=== PATIENT | male | born 1980 ===

== ENCOUNTER 2021-04-25 07:50 | Day surgery (SDC) | payer OTHER ==
[2021-04-25] MEDS ORDERED: Ringers Lactate 1,000 ML IV ONE ×2 (08:26→12:54)
[2021-04-25] MEDS ORDERED: CEFAZOLIN/SWI 1gm 1 GM/10 ML SYR ONE (08:27)
[2021-04-25] MEDS ORDERED: LIDOCAINE 2% MPF 5 ML VIAL ONE (08:44)
[2021-04-25] MEDS ORDERED: propofoL 200 MG/20 ML VIAL IV ONE (08:44)
[2021-04-25] MEDS ORDERED: FENTANYL CITR 250 MCG/5 ML ONE (08:44)
[2021-04-25] MEDS ORDERED: ROCURONIUM 50 MG/5 ML VIAL IV ONE (08:51)
[2021-04-25] MEDS ORDERED: MIDAZOLAM HCL 2 MG/2 ML INJ ONE (08:51)
[2021-04-25] MEDS ORDERED: ONDANSETRON 4 MG/2 ML VIAL ONE ×2 (08:51→11:21)
[2021-04-25] MEDS ORDERED: BUPIVACAINE 0.25% PF 10 ML VIAL ONE (09:05)
[2021-04-25] MEDS ORDERED: GLYCOPYRROLATE 0.2 MG/ML SYR ONE (10:49)
[2021-04-25] MEDS ORDERED: NEOSTIGMINE 1 MG/ML -5 ML ONE (10:49)
--- NOTE | 2021-04-25 10:49 | P.OP ---
Preoperative diagnosis: RIGHT Inguinal Hernia Postoperative diagnosis: RIGHT Inguinal Hernia Primary procedure: Open RIGHT inguinal hernia repair with plug and patch Anesthesia: GETA + Local Estimated blood loss: <10cc Specimen: hernia sack, cord lipoma Findings: indirect inguinal hernia, redicuble Complications: None Implants: Medium Bard Perfix plug and patch system Transferred to: Recovery Room Condition: Good
[2021-04-25] MEDS ORDERED: KETOROLAC 30 MG/ML INJ ONE (10:50)
[2021-04-25] MEDS: HYDROMORPHONE HCL 1 MG/ML INJ ONE ×2 (11:00→11:05)
[2021-04-25 11:12] VITALS: TEMP 97.5
[2021-04-25 11:47] VITALS: O2SAT 98
[2021-04-25] MEDS ORDERED: HYDROCODONE/APAP 10/325 TAB ONE (12:00)
--- NOTE | 2021-04-25 12:47 | OP ---
Date of Procedure: 04/25/2021 Surgeon: Nick Lakhani MD, Preoperative Diagnosis: Right inguinal hernia. Postoperative Diagnosis: Right inguinal hernia. Procedure Performed: Open right inguinal hernia repair with plug and patch system. Anesthesia: General endotracheal plus local with 0.25% Marcaine. Estimated Blood Loss: Less than 10 mL. Specimen: Hernia sac and cord lipoma. Findings: 1.Indirect inguinal hernia, which was reducible. 2.Near obliteration of the external oblique aponeurosis. Complications: None. Implants: Medium Bard PerFix plug and patch hernia repair system. Disposition: The patient was transferred to recovery room in good condition. Procedure In Detail: After informed consent was obtained, the patient was brought to the operating r oom, prepped and draped in the usual sterile fashion after adequate anesthesia was achieved. A right inguinal incision was performed down to subcutaneous tissues using a 15 blade. Electrocautery was u sed to dissect down through [place] fat and Paul fascia to expose the external oblique aponeurosis. This was found to be quite thin and alveolar, essentially translucent. I opened it sharply. The il ioinguinal nerve was identified and protected throughout the procedure and was moved to the medial po sition. I then dissected circumferentially around the spermatic cord structures and encircled the sp ermatic cord structures with a [place] drain. At this point, I removed the remaining fibrous attachm ents from the spermatic cord structures to mobilize this. I then dissected down proximally toward th e deep inguinal ring appreciating a large cord lipoma which was dissected free, tied off with a 2-0 n ylon suture and ligated at this point, sent off for pathologic examination. I then noted the hernia sac to be on the medial aspect with significant adipose tissue. I then opened the hernia sac at this point on the medial aspect consistent with an indirect inguinal hernia and after mobilizing the prep eritoneal fat, I reduced it to the normal anatomic position and ligated the sac circumferentially martir und and sent off for pathologic examination. At this point, I sized a medium Bard PerFix plug and pa tch hernia repair system and getting the plug first oriented in a parachute fashion and placed in the preperitoneal space and secured it circumferentially around the shelving edge at this point. I then brought the patch system sized appropriately and trimmed the mesh appropriately to pass onto the spe rmatic cord structures. I then secured to the pubic tubercle both on the medial aspect as well as on the residual shelving edge of the internal oblique aponeurosis, which was found to be quite thin and frail as well as the lateral shelving edge, which was easier to see and more fibrous on the undersur face of the inguinal ligament. At this point, the deep inguinal ring was reconstituted with the same said 2-0 PDS suture, which was used for the entire operation with respect to securing the mesh as de scribed. At this point, I irrigated the area copiously and dried it. Following this, I ultimately c losed the residual external oblique aponeurosis with a running 3-0 Vicryl suture. It was still found to be quite thin and frail and alveolar. I then irrigated the area once again and closed the deep d ermal plane with interrupted 3-0 Vicryl sutures and the skin was closed with 4-0 Monocryl in a runnin g fashion. Dermabond placed over top. The patient tolerated the procedure well without evidence of complication and transferred to PACU in good condition. All counts were correct at the end of the ca se. TK/MODL Voice ID: [id number] Report ID: [id number]
[2021-04-25 13:25] VITALS: BP 138/79
[2021-04-25] MEDS ORDERED: PROMETHAZINE INJ 25 MG/ML AMP ONE (14:21)
== END 2021-04-25 14:30 | disposition home or self-care (01) ==
LOC: PRE 07:50
PROVIDERS: ATTEND Surgery
PROC: 0YU50JZ Supplement Right Inguinal Region with Synthetic Substitute, Open Approach (ICD-10-PCS; principal; 2021-04-25 08:30)
DX: K40.90 Unilateral inguinal hernia, without obstruction or gangrene, not specified as recurrent (principal); Z20.822 Contact with and (suspected) exposure to COVID-19
CPT/HCPCS: 88302; 49505; U0003; J2704; J2550; J2250; J3010; J1170; J2710; J0690; J7120 ×2; J2405 ×2

== ENCOUNTER 2022-09-18 23:48 | Observation (INO) | payer OTHER, SELFPAY ==
[2022-09-19] MEDS ORDERED: NITROGLYCERIN 0.4 MG/TAB SL ONE (00:11)
[2022-09-19 00:39] LABS: Absolute Lymphocytes (CBC) 2.9 K/uL (0.7-4.9); Hematocrit 43.8 % (39.6-49.0); Lymphocytes % 32.1 % (15.3-44.8); MCV 88.6 fL (80-100); MPV 9.6 fL (7.6-11.3); RBC Red Blood Cell Count 4.94 M/uL (4.33-5.43)
[2022-09-19] MEDS ORDERED: FENTANYL CITR 100 MCG/2 ML ONE (00:40)
[2022-09-19] MEDS ORDERED: NA CHLORIDE 0.9% 1,000 ML ONE (00:41)
[2022-09-19 00:48] LABS: Albumin 4.1 g/dL (3.4-5.0); Bilirubin Total 0.7 mg/dL (0.2-1.0); Potassium 3.7 mmol/L (3.5-5.1); Protein, Total 7.9 g/dL (6.4-8.2); Troponin High Sensitivity 4.2 pg/mL (<58.9)
[2022-09-19] MEDS ORDERED: SIMETHICONE 80 MG TAB ONE (02:04)
--- NOTE | 2022-09-19 02:05 | ER ---
Nurse's Notes [facility] Name: Kandace Cormier Age: 42 yrs Sex: Male : 1980 Arrival Date: 09/18/2022 Time: 23:49 Bed 5 Private MD: Diagnosis: Chest pain, unspecified Presentation: 09/18 23:58 Chief complaint: Patient states: I started having pain in the middle of my chest about kd3 10 to 15 minutes ago. It does not go anywhere. It just stays here. I have no history of heart issues. Coronavirus screen: Vaccine status: Patient reports receiving the 2nd dose of the covid vaccine. Ebola Screen: No symptoms or risks identified at this time. Initial Sepsis Screen: Does the patient meet any 2 criteria? No. Patient's initial sepsis screen is negative. Does the patient have a suspected source of infection? No. Patient's initial sepsis screen is negative. Risk Assessment: Do you want to hurt yourself or someone else? Patient reports no desire to harm self or others. Onset of symptoms was September 18, 2022. 23:58 Method Of Arrival: Ambulatory kd3 23:58 Acuity: MICHAELA 3 kd3 Triage Assessment: 23:59 General: Appears uncomfortable, Behavior is cooperative, anxious. Pain: Complains of kd3 pain in mid-sternal area. Neuro: Level of Consciousness is awake, alert, obeys commands, Oriented to person, place, time, situation. Cardiovascular: Capillary refill < 3 seconds in bilateral fingers. Historical: - Allergies: 23:59 No Known Allergies; kd3 - Home Meds: 23:59 None [Active]; kd3 - PMHx: 23:59 None; kd3 - Immunization history:: Adult Immunizations up to date. - Social history:: Smoking status: Patient denies any tobacco usage or history of. - Family history:: not pertinent. Screenin/02 00:15 [facility] ED Fall Risk Assessment (Adult) History of falling in the last 3 months, lg3 including since admission No falls in past 3 months (0 pts). Abuse screen: Denies threats or abuse. Denies injuries from another. Nutritional screening: No deficits noted. Tuberculosis screening: No symptoms or risk factors identified. Assessment: 00:15 General: Appears in no apparent distress. uncomfortable, Behavior is cooperative, lg3 anxious, restless. Pain: Complains of pain in chest Pain does not radiate. Pain currently is 10 out of 10 on a pain scale. Pain began suddenly. Neuro: No deficits noted. [place] Agitation-Sedation Scale (RASS): 0 - Alert and Calm Level of Consciousness is awake, alert, obeys commands, Oriented to person, place, time, situation. Cardiovascular: Reports chest pain, Denies shortness of breath, Capillary refill < 3 seconds Clubbing of nail beds is absent JVD is absent Patient's skin is warm and dry. Rhythm is sinus rhythm. Respiratory: No deficits noted. Airway is patent Trachea midline Respiratory effort is even, unlabored, Respiratory pattern is regular, symmetrical. GI: No deficits noted. No signs and/or symptoms were reported involving the gastrointestinal system. Abdomen is flat, non-distended. : No deficits noted. No signs and/or symptoms were reported regarding the genitourinary system. EENT: No deficits noted. No signs and/or symptoms were reported regarding the EENT system. Derm: No deficits noted. No signs and/or symptoms reported regarding the dermatologic system. Skin is intact, is healthy with good turgor, Skin is dry, Skin is normal. Musculoskeletal: No deficits noted. No signs and/or symptoms reported regarding the musculoskeletal system. Circulation, motion, and sensation intact. Range of motion: intact in all extremities. 02:19 Reassessment: Patient appears in no apparent distress at this time. No changes from lg3 previously documented assessment. Patient and/or family updated on plan of care and expected duration. Pain level reassessed. Patient is alert, oriented x 3, equal unlabored respirations, skin warm/dry/pink. Patient states feeling better. Patient states symptoms have improved. 03:10 General: attempted to call report. nurse out on lunch and will call back.. lg3 Vital Signs: 09/18 23:58 BP 155 / 102; Pulse 88; Resp 22; Temp 98.2(TE); Pulse Ox 100% on R/A; Weight 77.11 kg; kd3 09/19 00:27 BP 81 / 53; kl 00:55 BP 115 / 73; Pulse 66; Resp 20; Pulse Ox 97% on R/A; lg3 01:39 BP 121 / 77; Pulse 71; Resp 19; Pulse Ox 99% on R/A; lg3 ED Course: 09/18 23:49 Patient arrived in ED. ja2 23:53 Clay Bradley MD is Attending Physician. rt 23:59 Triage completed. kd3 23:59 Arm band placed on right wrist. kd3 02 00:10 Nakia Schulte, RN is Primary Nurse. eh3 00:15 Patient has correct armband on for positive identification. Placed in gown. Bed in low lg3 position. Call light in reach. Side rails up X 1. Client placed on continuous cardiac and pulse oximetry monitoring. NIBP monitoring applied. ekg monitor tech on. Door closed. Noise minimized. Warm blanket given. Family accompanied patient. 00:15 No provider procedures requiring assistance completed. Inserted saline lock: 20 gauge lg3 in right antecubital area, using aseptic technique. Blood collected. Patient maintains SpO2 saturation greater than 95% on room air. 01:29 Angio Aorta For Dissection In Process Unspecified. EDMS 02:04 Clarence Burkett MD is Hospitalizing Provider. rt 02:11 SARS RAPID Sent. lg3 03:47 Patient admitted, IV remains in place. intact, No redness/swelling at site. lg3 Administered Medications: 00:10 Drug: Nitroglycerin 0.4 mg {Note: BP 150/104.} Route: Sublingual; kl 00:16 Drug: Nitroglycerin 0.4 mg {Note: bp 112/78 no change in pain.} Route: Sublingual; kl 00:42 Drug: NS 0.9% 1000 ml Route: IV; Rate: 1 bolus; Site: right antecubital; kl 01:50 Follow up: Response: No adverse reaction; IV Status: Completed infusion; IV Intake: ll3 1000ml 00:42 Drug: fentaNYL (PF) 50 mcg Route: IVP; Site: right antecubital; kl 02:20 Follow up: Response: No adverse reaction; Pain is decreased; RASS: Alert and Calm (0) lg3 02:01 Drug: Simethicone 120 mg Route: PO; ll3 02:19 Follow up: Response: No adverse reaction lg3 02:11 Drug: Aspirin 325 mg Route: PO; lg3 02:19 Follow up: Response: No adverse reaction lg3 Medication: 00:15 VIS not applicable for this client. lg3 Intake: 01:50 IV: 1000ml; Total: 1000ml. ll3 Outcome: 02:05 Decision to Hospitalize by Provider. rt 03:46 Admitted to Med/surg accompanied by nurse, via wheelchair, room 203, Report called to jim Epperson 03:46 Condition: stable 03:46 Instructed on the need for admit, Demonstrated understanding of instructions. 03:47 Patient left the ED. lg3 Signatures: Dispatcher [employer] EDDiana Liu, RN RN Darby Ramirez RN RN martin3 My Marshall Lynsea RN RN ll3 Willa Hernandez RN RN kd3 Nakia Schulte, RN RN eh3 Clay Bradley MD MD rt
--- NOTE | 2022-09-19 02:06 | EDPHYS ---
Physician Documentation [facility] Name: Kandace Cormier Age: 42 yrs Sex: Male : 1980 Arrival Date: 09/18/2022 Time: 23:49 Bed 5 Private MD: ED Physician Clay Bradley HPI: 09/19 00:28 This 42 yrs old Unknown Male presents to ER via Ambulatory with complaints of Chest rt Pain. 00:28 The patient or guardian reports chest pain that is located primarily in the substernal rt area. Onset: just prior to arrival. The pain does not radiate. Associated signs and symptoms: Pertinent positives: shortness of breath, Pertinent negatives: cough. The chest pain is described as a pressure. Duration: The patient or guardian reports a single episode, that is still ongoing. Modifying factors: The symptoms are alleviated by nothing. the symptoms are aggravated by nothing. Severity of pain: At its worst the pain was severe. The patient has not experienced similar symptoms in the past. Historical: - Allergies: 09/18 23:59 No Known Allergies; kd3 - Home Meds: 23:59 None [Active]; kd3 - PMHx: 23:59 None; kd3 - Immunization history:: Adult Immunizations up to date. - Social history:: Smoking status: Patient denies any tobacco usage or history of. - Family history:: not pertinent. ROS: 09/19 00:28 Constitutional: Negative for fever, chills, and weight loss, Neck: Negative for injury, rt pain, and swelling, Abdomen/GI: Negative for abdominal pain, nausea, vomiting, diarrhea, and constipation, MS/Extremity: Negative for injury and deformity, Skin: Negative for injury, rash, and discoloration, Neuro: Negative for headache, weakness, numbness, tingling, and seizure, Psych: Negative for depression, anxiety, suicide ideation, homicidal ideation, and hallucinations. Cardiovascular: Positive for chest pain, Negative for edema. Respiratory: Positive for shortness of breath, Negative for cough. Exam: 00:28 Constitutional: This is a well developed, well nourished patient who is awake, alert, rt and in no acute distress. Head/Face: Normocephalic, atraumatic. Eyes: Pupils equal round and reactive to light, extra-ocular motions intact. Lids and lashes normal. Conjunctiva and sclera are non-icteric and not injected. Cornea within normal limits. Periorbital areas with no swelling, redness, or edema. Neck: Trachea midline, no thyromegaly or masses palpated, and no cervical lymphadenopathy. Supple, full range of motion without nuchal rigidity, or vertebral point tenderness. No Meningismus. Chest/axilla: Normal chest wall appearance and motion. Nontender with no deformity. No lesions are appreciated. Cardiovascular: Regular rate and rhythm with a normal S1 and S2. No gallops, murmurs, or rubs. Normal PMI, no JVD. No pulse deficits. Respiratory: Lungs have equal breath sounds bilaterally, clear to auscultation and percussion. No rales, rhonchi or wheezes noted. No increased work of breathing, no retractions or nasal flaring. Abdomen/GI: Soft, non-tender, with normal bowel sounds. No distension or tympany. No guarding or rebound. No evidence of tenderness throughout. Skin: Warm, dry with normal turgor. Normal color with no rashes, no lesions, and no evidence of cellulitis. MS/ Extremity: Pulses equal, no cyanosis. Neurovascular intact. Full, normal range of motion. Neuro: Awake and alert, GCS 15, oriented to person, place, time, and situation. Cranial nerves II-XII grossly intact. Motor strength 5/5 in all extremities. Sensory grossly intact. Cerebellar exam normal. Normal gait. Psych: Awake, alert, with orientation to person, place and time. Behavior, mood, and affect are within normal limits. 00:28 ECG was reviewed by the Attending Physician. Vital Signs: 09/18 23:58 BP 155 / 102; Pulse 88; Resp 22; Temp 98.2(TE); Pulse Ox 100% on R/A; Weight 77.11 kg; kd3 09/19 00:27 BP 81 / 53; kl 00:55 BP 115 / 73; Pulse 66; Resp 20; Pulse Ox 97% on R/A; lg3 01:39 BP 121 / 77; Pulse 71; Resp 19; Pulse Ox 99% on R/A; lg3 MDM: 00:00 Patient medically screened. rt 02:06 Differential diagnosis: acute myocardial infarction, pneumonia, pneumothorax, pulmonary rt embolus, thoracic aortic disection. HEART Score: History: Highly Suspicious (2), ECG: Normal (0), Age: < or = 45 years (0), Risk Factors: 1 or 2 risk factors (1), Troponin: < or = 1 x Normal Limit (0), Total Score = 3. Data reviewed: vital signs, nurses notes, lab test result(s), EKG, radiologic studies. Consideration of Admission/Observation Patient was admitted/placed on observation. Management of patient was discussed with the following: Hospitalist: Agrees to admit. I considered the following discharge prescriptions or medication management in the emergency department Medications were administered in the Emergency Department. See MAR. Independent interpretation of the following test(s) in the Emergency Department CT Scan: My interpretation is No dissection, free air under the diaphragm. Test considered but Not performed: X-ray: CT to be performed, x-ray redundant. Historians other than the Patient: Spouse/Significant Other: Confirmed history with spouse. Response to treatment: the patient's symptoms have markedly improved after treatment. 09/19 00:03 Order name: CBC with Diff; Complete Time: 01:25 rt 09/19 00:03 Order name: CMP; Complete Time: 01:25 rt 09/19 00:03 Order name: Lipase; Complete Time: 01:25 rt 09/19 00:03 Order name: Troponin High Sensitivity; Complete Time: 01:25 rt 09/19 00:24 Order name: Troponin High Sensitivity lg3 02 02:04 Order name: SARS RAPID la1 09/19 01:08 Order name: Angio Aorta For Dissection EDMS EC:28 Rate is 69 beats/min. Rhythm is regular, Normal Sinus Rhythm with No ectopy. QRS Alpha rt is Normal. AL interval is normal. QRS interval is normal. QT interval is normal. No Q waves. T waves are Normal. No ST changes noted. Interpreted by me. Administered Medications: 00:10 Drug: Nitroglycerin 0.4 mg {Note: BP 150/104.} Route: Sublingual; kl 00:16 Drug: Nitroglycerin 0.4 mg {Note: bp 112/78 no change in pain.} Route: Sublingual; kl 00:42 Drug: NS 0.9% 1000 ml Route: IV; Rate: 1 bolus; Site: right antecubital; kl 01:50 Follow up: Response: No adverse reaction; IV Status: Completed infusion; IV Intake: ll3 1000ml 00:42 Drug: fentaNYL (PF) 50 mcg Route: IVP; Site: right antecubital; 02:20 Follow up: Response: No adverse reaction; Pain is decreased; RASS: Alert and Calm (0) lg3 02:01 Drug: Simethicone 120 mg Route: PO; ll3 02:19 Follow up: Response: No adverse reaction lg3 02:11 Drug: Aspirin 325 mg Route: PO; lg3 02:19 Follow up: Response: No adverse reaction lg3 Disposition Summary: 09/19/22 02:05 Hospitalization Ordered Hospitalization Status: Observation rt Provider: Clarence Burkett rt Location: Telemetry/MedSurg (observation) rt Condition: Stable rt Problem: new rt Symptoms: have improved rt Bed/Room Type: Standard rt Room Assignment: 203(09/19/22 02:58) eb1 Diagnosis - Chest pain, unspecified rt Forms: - Medication Reconciliation Form rt - SBAR form rt Signatures: Dispatcher [employer] EDDiana Liu, RN RN Chayito Mcclendon RN RN eb1 Darby Phillips, RN RN lg3 Robel Obrien, RN RN ll3 Willa Hernandez, RN RN qamar3 Clay Bradley MD MD rt Corrections: (The following items were deleted from the chart) 00:25 00:24 EKG - Nurse/Tech ordered. lg3 lg3 01:08 00:04 Dissection W/ Wo Con+CT.RAD.BRZ ordered. EDMS EDMS 02:58 02:05 rt eb1
[2022-09-19] MEDS ORDERED: ASPIRIN 325 MG TAB ONE (02:11)
--- NOTE | 2022-09-19 02:35 | P.HP ---
Certification for Inpatient Patient admitted to: Observation With expected LOS: <2 Midnights Patient will require the following post-hospital care: None Practitioner: I am a practitioner with admitting privileges, knowledge of patient current condition, hospital course, and medical plan of care. Services: Services provided to patient in accordance with Admission requirements found in Title 42 Section 412.3 of the Code of Federal Regulations Patient History Date of Service: 09/19/22 Reason for admission: Chest pain History of Present Illness: 42-year-old male with no significant past medical history presents to the emergency department for chest pain. He reports that his pain began while watching TV at home, pain is described as pressure-like left anterior chest wall nonradiating made worse with deep breaths. He reports he is also fasting at this time at the time he was having abdominal distention and belching. Patient was evaluated in the emergency department initial hesitance to be troponin was 4.2 CT dissection protocol was performed which was negative for acute aortic findings or pulmonary embolism. EKG without STEMI criteria. ED provider wishes to manage observation for ACS rule out. Allergies No Known Allergies Allergy (Verified 04/18/21 11:50) Home Medications: NK [No Home Meds] 04/18/21 - Past Medical/Surgical History -: None -: Hernia Repair Psychosocial/ Personal History: Pt works at a gas [employer], lives at home with family. - Family History Family History: Reviewed- Non-Contributory - Social History Smoking Status: Never smoker Alcohol use: No CD- Drugs: No Caffeine use: No Place of Residence: Home Review of Systems 10-point ROS is otherwise unremarkable Cardiovascular: Chest Pain Physical Examination - Physical Exam General: Alert, In no apparent distress, Oriented x3 HEENT: Atraumatic, PERRLA, Mucous membr. moist/pink, EOMI, Sclerae nonicteric Neck: Supple, 2+ carotid pulse no bruit, No LAD, Without JVD or thyroid abnormality Respiratory: Clear to auscultation bilaterally, Normal air movement Cardiovascular: Regular rate/rhythm, Normal S1 S2 Gastrointestinal: Normal bowel sounds, No tenderness Musculoskeletal: No tenderness Integumentary: No rashes Neurological: Normal speech, Normal strength at 5/5 x4 extr, Normal tone, Normal affect - Studies Laboratory Data (last 24 hrs) 09/19/22 00:05: Sodium 137, Potassium 3.7, BUN 10, Creatinine 1.00, Glucose 97, Total Bilirubin 0.7, AST 19, ALT 34, Alkaline Phosphatase 63, Lipase 179 09/19/22 00:05: WBC 9.10, Hgb 14.8, Hct 43.8, Plt Count 175 Assessment and Plan - Plan Assessment: Chest pain R/O ACS Plan: Chest pain R/O ACS: Trend troponins, Monitor on tele, suspect GI/Gerd component will treat with PPI. Cardiology consult in place. DVT PPX:Lovenox Code status:Full Discharge Plan: Home Plan to discharge in: 24 Hours - Advance Directives Does patient have a Living Will: No Does patient have a Durable POA for Healthcare: No - Code Status/Comfort Care Code Status Assessed: Yes (Full code) Critical Care: No Time Spent Managing Pts Care (In Minutes): 55
[2022-09-19 02:54] LABS: SARS-CoV-2 Antigen Rapid Res Negative (Negative)
[2022-09-19] MEDS ORDERED: ONDANSETRON 4 MG/2 ML VIAL IV PRN (03:58)
[2022-09-19 04:02] VITALS: BMI 26.1
[2022-09-19] MEDS ORDERED: MORPHINE 2 MG/ML SYR IV PRN (06:33)
[2022-09-19 07:12] LABS: Thyroid Stimulating Hormone 2.01 uIU/mL (0.358-3.740)
[2022-09-19] MEDS ORDERED: PANTOPRAZOLE 40MG TABLET PO SCH (07:30)
[2022-09-19] MEDS: SUCRALFATE 1 GM TABLET PO SCH ×2 (08:22→11:07)
[2022-09-19] MEDS ORDERED: POTASSIUM CL SA 10 MEQ TAB PO ONE (09:00)
[2022-09-19] MEDS ORDERED: ENOXAPARIN 40 MG/0.4 ML SQ SCH (09:00)
[2022-09-19 09:48] VITALS: O2SAT 98
[2022-09-19 11:57] VITALS: BP 104/66; TEMP 98.2
--- NOTE | 2022-09-20 09:37 | RAD REPORT ---
EXAM DESCRIPTION: CT - Angio Aorta For Dissection - 09/19/2022 6:28 am CLINICAL HISTORY: 42 years, Male, chest pain COMPARISON: None. TECHNIQUE: Multiple transaxial tomograms of the thoracic and abdominal aorta from the lung apex base s to the ischial tuberosities were performed utilizing 3 mm slice thickness at 3 mm interval reconstr uction after the administration of large bolus of IV contrast for complete opacification of the thora cic, abdominal aorta and iliac arteries. 2-D and 3-D multiplanar reformats, volume rendering technique and maximum intensity projection images were generated and reviewed. This exam was performed according to our departmental dose-optimization protocol, which includes auto mated exposure control, adjustment of the mA and/or kV according to patient size and/or use of iterat brittany reconstruction technique. FINDINGS: Thoracic aorta: The thoracic aorta demonstrate to be within normal limits. There is no evidence for aneurysm/or disse ction. There is no branching pattern of the great vessels with no evidence for significant stenosis/o r occlusion. Abdominal aorta: The abdominal aorta demonstrate to be within normal limits. There is no evidence for dissection/or an eurysm. Iliac arteries demonstrate normal appearance with no stenosis/or occlusion. Visceral branches demonstrate to be normal. Single bilateral renal arteries demonstrate to be unremar kable. Chest: The lung parenchyma demonstrate to be clear. No significant pulmonary nodules/or masses are identifie d. There are dependent atelectatic changes lung bases. Mild elevation right hemidiaphragm. The trachea mainstem bronchus demonstrate to be unremarkable. There is no pleural/or pericardial effu sions. The heart is normal in size. The central pulmonary arteries demonstrate no evidence for significant f illing defects that will suggest pulmonary embolus. There is no significant mediastinal and/or hilar lymphadenopathy. The axillary regions demonstrate to be clear. The bone windows demonstrate no signif icant skeletal lesions. Abdomen and pelvis: The liver demonstrate decreased attenuation corresponding to fatty infiltration, gallbladder, spleen, adrenal glands, pancreas demonstrate to be unremarkable. The kidneys demonstrate normal uptake of contrast media. There is no evidence for hydronephrosis/or n ephrolithiasis. The unopacified stomach, small bowel and large bowel demonstrate to be unremarkable. There is no evid ence for bowel dilatation. The appendix is normal. There is very minimal diverticulosis within the si gmoid colon. The urinary bladder demonstrate to be normal. The prostate gland is slightly prominent perhaps relate d to BPH. There is no retroperitoneal lymphadenopathy. There is no evidence for ascites. The bone win dows demonstrate no significant skeletal abnormalities. IMPRESSION: No evidence for significant pulmonary embolus and/or thoracic aortic dissection. Fatty infiltration of the liver. Minimal diverticulosis without evidence for acute diverticulitis. Mildly prominent prostate gland perhaps related to BPH. Electronically signed by: Hermilo eLvy MD 09/19/2022 1:49 AM DIRECTOR OF REHABILITATION Due to temporary technical issues with the PACS/Fluency reporting system, reports are being signed by the in house radiologists without review as a courtesy to insure prompt reporting. The interpreting radiologist is fully responsible for the content of the report.
== END 2022-09-19 14:00 | disposition home or self-care (01) ==
LOC: ER 23:48 → ERHOLD 09-19 02:24 → 2ND 09-19 03:00
PROVIDERS: ADMIT Hospitalist; ATTEND Hospitalist
DX: R07.9 Chest pain, unspecified (principal); Z20.822 Contact with and (suspected) exposure to COVID-19
CPT/HCPCS: 36415; 71275; 74175; 80053; 80061; 83690; 84439; 84443; 84484; 85025; 87811; 93005; G0378; J1650; J2270; J3010; J7030; Q9967